=== PATIENT | male | born 1955 | race Caucasian/White ===

== ENCOUNTER → 2022-05-25 | Outpatient (CLI) | payer MEDICARE ==
[2022-05-25 13:18] LABS: INR 1.01 (0.85-1.15)
[2022-05-25 13:19] LABS: ALBUMIN 3.7 g/dL (3.5-5.0); BILIRUBIN,DIRECT 0.2 mg/dL (0.0-0.3); CREATININE 1.2 mg/dL (0.5-1.5); TOTAL PROTEIN, SERUM 7.5 g/dL (6.0-8.3)
== END | disposition home or self-care (01) ==
LOC: LAB 12:42
PROVIDERS: ATTEND Internal Medicine Gastroenterology
DX: K76.89 Other specified diseases of liver (principal); I48.91 Unspecified atrial fibrillation; R93.3 Abnormal findings on diagnostic imaging of other parts of digestive tract
CPT/HCPCS: 36415; 80076; 82105; 82565; 84520; 85610; 85730

== ENCOUNTER → 2022-05-30 | Outpatient (CLI) | payer MEDICARE ==
[~2022-05-30] MED LIST: GADOTERATE MEGLUMINE 10 MMOL/20 ML VIAL IV ONE
== END | disposition home or self-care (01) ==
LOC: RAH 14:44
PROVIDERS: ATTEND Internal Medicine Gastroenterology
DX: R93.3 Abnormal findings on diagnostic imaging of other parts of digestive tract (principal); K76.89 Other specified diseases of liver
CPT/HCPCS: 74183; A9575

== ENCOUNTER → 2023-02-08 | Outpatient (CLI) | payer MEDICARE ==
[2023-02-08 10:10] LABS: BASOPHILS # (AUTO) 0.05 K/uL (0.00-0.20); BASOPHILS % (AUTO) 0.9 % (0.0-5.0); EOSINOPHILS # (AUTO) 0.07 K/uL (0.00-0.70); EOSINOPHILS % (AUTO) 1.3 % (0.0-8.0); HEMATOCRIT 43.9 % (42-54); IMMATURE GRANULOCYTE ABSOLUTE 0.02 K/uL (0-1); LYMPHOCYTES # (AUTO) 0.8 K/uL (1.0-4.8); LYMPHOCYTES % (AUTO) 15.2 % (21.0-51.0); MEAN CORPUSCULAR HEMOGLOBIN 31.9 pg (27.0-33.0); MEAN CORPUSCULAR HGB CONC 33.9 g/dL (32.0-36.0); MONOCYTES # (AUTO) 0.9 K/uL (0.1-1.0); NEUTROPHILS # (AUTO) 3.5 K/uL (1.8-7.7); NEUTROPHILS % (AUTO) 65.2 % (40.0-77.0); PLATELET COUNT (AUTO) 223 K/uL (130-400); RED BLOOD CELL COUNT(AUTO) 4.67 MIL/uL (4.50-6.20); RED CELL DISTRIBUTION WIDTH 12.7 % (11.0-15.5); WHITE BLOOD COUNT (AUTO) 5.3 K/uL (4.8-10.8)
[2023-02-08 10:24] LABS: ALBUMIN 3.5 g/dL (3.5-5.0); BILIRUBIN,TOTAL 0.8 mg/dL (0.2-1.0); CREATININE 1.1 mg/dL (0.5-1.5); POTASSIUM 4.1 mmol/L (3.5-5.1); TOTAL PROTEIN, SERUM 7.2 g/dL (6.0-8.3)
== END | disposition home or self-care (01) ==
LOC: LAB 09:33
PROVIDERS: ATTEND Internal Medicine Gastroenterology
DX: R93.3 Abnormal findings on diagnostic imaging of other parts of digestive tract (principal)
CPT/HCPCS: 36415; 80053; 85025; 86682; 86753

== ENCOUNTER → 2023-02-12 | Outpatient (CLI) | payer MEDICARE ==
[~2023-02-12] MED LIST changes: -GADOTERATE MEGLUMINE 10 MMOL/20 ML VIAL IV ONE; +IOHEXOL-350 75 ML VIAL IV ONE
== END | disposition home or self-care (01) ==
LOC: RAH 07:30
PROVIDERS: ATTEND Internal Medicine Gastroenterology
DX: K76.89 Other specified diseases of liver (principal); R93.3 Abnormal findings on diagnostic imaging of other parts of digestive tract; M47.815 Spondylosis without myelopathy or radiculopathy, thoracolumbar region; J98.11 Atelectasis; K44.9 Diaphragmatic hernia without obstruction or gangrene; I70.0 Atherosclerosis of aorta
CPT/HCPCS: 74170; Q9967

== ENCOUNTER → 2024-01-31 | Outpatient (CLI) | payer MEDICARE ==
[2024-01-31 13:25] LABS: ALBUMIN 3.6 g/dL (3.5-5.0); BILIRUBIN,TOTAL 0.6 mg/dL (0.2-1.0); CREATININE 1.1 mg/dL (0.5-1.3); POTASSIUM 5.1 mmol/L (3.5-5.1); TOTAL PROTEIN, SERUM 7.3 g/dL (6.0-8.3)
== END | disposition home or self-care (01) ==
LOC: LAB 12:12
PROVIDERS: ATTEND Internal Medicine Gastroenterology
DX: R93.3 Abnormal findings on diagnostic imaging of other parts of digestive tract (principal)
CPT/HCPCS: 36415; 80053

== ENCOUNTER → 2024-02-08 | Outpatient (CLI) | payer MEDICARE | END | disposition home or self-care (01) | LOC: RAH 08:41 | PROVIDERS: ATTEND Internal Medicine | DX: K76.89 Other specified diseases of liver (principal); R93.3 Abnormal findings on diagnostic imaging of other parts of digestive tract | CPT/HCPCS: 74170; Q9967 ==

== ENCOUNTER → 2024-02-26 | Outpatient (CLI) | payer MEDICARE ==
[~2024-02-26] MED LIST changes: +FINA5TAB41 PO; -IOHEXOL-350 75 ML VIAL IV ONE; +OMEP40CA21 PO; +TELM20TA8 PO
[2024-02-26 16:38] LABS: CREATININE 1.2 mg/dL (0.5-1.3); POTASSIUM 4.3 mmol/L (3.5-5.1)
== END | disposition home or self-care (01) ==
LOC: LAB 11:53
PROVIDERS: ATTEND Internal Medicine Cardiovascular Disease
DX: I10 Essential (primary) hypertension (principal)
CPT/HCPCS: 36415; 80048

== ENCOUNTER → 2024-03-11 | Outpatient (CLI) | payer MEDICARE ==
[~2024-03-11] MED LIST changes: +ASPI-1443 PO; +CARV6.2579 PO; +LOSA-417 PO; -TELM20TA8 PO
[2024-03-11 17:26] LABS: CREATININE 1.1 mg/dL (0.5-1.3); POTASSIUM 4.2 mmol/L (3.5-5.1)
== END | disposition home or self-care (01) ==
LOC: LAB 14:10
PROVIDERS: ATTEND Internal Medicine Cardiovascular Disease
DX: I10 Essential (primary) hypertension (principal); E78.5 Hyperlipidemia, unspecified
CPT/HCPCS: 36415; 80048; 80061

== ENCOUNTER → 2025-02-13 | Outpatient (CLI) | payer MEDICARE ==
[2025-02-13 12:18] LABS: IMMATURE GRANULOCYTE ABSOLUTE 0.03 K/uL (0-1); NUCLEATED RED BLOOD CELLS 0.0 % (0.0-0.19); PLATELET COUNT (AUTO) 268 K/uL (130-400); RED BLOOD CELL COUNT(AUTO) 4.84 MIL/uL (4.50-6.20); RED CELL DISTRIBUTION WIDTH 12.5 % (11.0-15.5); WHITE BLOOD COUNT (AUTO) 7.1 K/uL (4.8-10.8)
[2025-02-13 12:29] LABS: INR 1.11 (0.85-1.15)
[2025-02-13 12:37] LABS: ASPARTATE AMINOTRANSFERASE 14.0 U/L (10-37); CREATININE 1.2 mg/dL (0.5-1.3); GLOMERULAR FILTR. RATE CALC 65.0 mL/min (>90); GLUCOSE,RANDOM 111.0 mg/dL (70-105); SODIUM SERUM 135.0 mmol/L (136-145); TOTAL PROTEIN, SERUM 7.0 g/dL (6.0-8.3); UREA NITROGEN, BLOOD 13.0 mg/dL (7-18)
== END | disposition home or self-care (01) ==
LOC: LAB 11:44
PROVIDERS: ATTEND Internal Medicine
DX: K29.70 Gastritis, unspecified, without bleeding (principal); R93.3 Abnormal findings on diagnostic imaging of other parts of digestive tract
CPT/HCPCS: 36415; 80053; 85025; 85610

== ENCOUNTER → 2025-02-18 | Outpatient (CLI) | payer MEDICARE ==
[~2025-02-18] MED LIST changes: +IOHEXOL-350 75 ML VIAL IV ONE
--- NOTE | 2025-02-18 22:30 | HMCIMG ---
EXAM: CT ABDOMEN AND PELVIS WITH IV CONTRAST CLINICAL HISTORY: Abnormal findings on diagnostic imaging of other parts of digestive tract. TECHNIQUE: Axial computed tomography images of the abdomen and pelvis obtained following intravenous administration of contrast. Multiplanar reformations reviewed. CONTRAST: 75 cc of nonionic intravenous contrast administered. RADIATION DOSE: Total CTDIvol (Body): 25.00 mGy Total DLP (Body): 1319.70 mGy???cm COMPARISON: None provided. FINDINGS: LUNG BASES: Clear. No pleural effusion or basal consolidation. LIVER: Multiple diffusely scattered, lobulated, non-enhancing hypodense cystic lesions in both lobes of the liver, largest measuring 3.5 cm in segment VIII, consistent with hepatic cysts. No enhancing mass or intrahepatic biliary dilatation. GALLBLADDER AND BILE DUCTS: Gallbladder is normally distended without calculi or mural thickening. No biliary ductal dilatation. PANCREAS: Normal in size and contour. No peripancreatic inflammation or ductal dilatation. SPLEEN: Normal in size and attenuation. ADRENAL GLANDS: Normal bilaterally. KIDNEYS, URETERS, AND BLADDER: Kidneys are normal in size and cortical thickness. No hydronephrosis, hydroureter, or calculi. Urinary bladder appears normal. STOMACH AND BOWEL: Small sliding hiatus hernia measuring 2.2 cm. Diffuse chronic diverticulosis of the colon with circumferential enhancing wall thickening of the sigmoid colon (maximum thickness 1.7 cm, length 8 cm) and pericolonic fat stranding, suggestive of acute diverticulitis. No bowel obstruction or perforation. APPENDIX: Normal. No periappendiceal inflammatory changes. PERITONEUM: No free fluid or free air. LYMPH NODES: No pathologic lymphadenopathy. REPRODUCTIVE: Prostate enlarged, measuring 39 cc, consistent with benign prostatic hypertrophy (BPH). VASCULATURE: Abdominal aorta and major branches are patent. No aneurysm or dissection. BONES: No acute or destructive osseous lesion. IMPRESSION: 1. Acute sigmoid diverticulitis with circumferential wall thickening (maximum thickness 1.7 cm, length 8 cm) and pericolonic fat stranding. 2. Multiple hepatic cysts, largest measuring 3.5 cm in segment VIII, consistent with simple hepatic cysts. 3. Diffuse chronic colonic diverticulosis. 4. Small sliding hiatus hernia measuring 2.2 cm. 5. Benign prostatic hypertrophy, prostate volume 39 cc. 6. No evidence of bowel obstruction, perforation, or free fluid/air in the peritoneum. /[place]
== END | disposition home or self-care (01) ==
LOC: RAH 07:37
PROVIDERS: ATTEND Internal Medicine
DX: K57.32 Diverticulitis of large intestine without perforation or abscess without bleeding (principal); K57.30 Diverticulosis of large intestine without perforation or abscess without bleeding; K76.89 Other specified diseases of liver; N40.0 Benign prostatic hyperplasia without lower urinary tract symptoms; K44.9 Diaphragmatic hernia without obstruction or gangrene; R93.3 Abnormal findings on diagnostic imaging of other parts of digestive tract
CPT/HCPCS: 74177; Q9967

== ENCOUNTER → 2025-04-22 | Outpatient (CLI) | payer MEDICARE ==
[~2025-04-22] MED LIST changes: +IOHEXOL 350 MG/ML 100ML INFUS..BTL IV ONE; -IOHEXOL-350 75 ML VIAL IV ONE
--- NOTE | 2025-04-22 23:51 | HMCIMG ---
EXAMINATION: CT ANGIOGRAPHY OF THE ABDOMEN WITH AND WITHOUT INTRAVENOUS CONTRAST Clinical Indication: Essential/primary hypertension. Evaluation for renovascular etiology. Comparison: CT abdomen and pelvis dated February 18, 2025. Technique: Multiphase CT angiography of the abdomen was performed before and after intravenous contrast administration, with multiplanar reformations and maximum intensity projections. Radiation Dose: CTDIvol 85.3 mGy. DLP 1111.10 mGycm. Findings: Lower Chest: Bibasilar dependent and streaky atelectasis is present. Mild centrilobular emphysema is noted. Mitral and aortic valve annulus calcifications are present, with minimal coronary arterial calcifications. Liver: The liver measures approximately 17.7 cm in craniocaudal dimension. Multiple well-defined hypodense lesions are present in both hepatic lobes. The largest lesion, located in segment , measures approximately 5.6 7.5 7.0 cm and demonstrates low attenuation with an average value of approximately 26 Hounsfield units. A few lesions demonstrate peripheral rim calcifications. No post-contrast enhancement is identified. No intrahepatic or extrahepatic biliary ductal dilatation is present. Gallbladder and Biliary Tree: The gallbladder is unremarkable. No biliary dilatation. Spleen: The spleen is unremarkable, measuring approximately 11.7 cm. Pancreas: Unremarkable in size and attenuation, without focal lesion or ductal dilatation. Adrenal Glands: Both adrenal glands are unremarkable. Kidneys: The kidneys are normal in size and enhancement. A nonenhancing hypodense lesion measuring approximately 1.0 cm is present in the posterior interpolar region of the right kidney, compatible with a Bosniak class I simple cyst. No hydronephrosis is present. Abdominal Vasculature: The abdominal aorta demonstrates atheromatous calcification without aneurysm or dissection. The origins and visualized courses of the celiac trunk, superior mesenteric artery, bilateral renal arteries, and inferior mesenteric artery are patent without evidence of stenosis or occlusion. No accessory renal arteries are identified. Retroperitoneum: No retroperitoneal mass or lymphadenopathy is identified. Gastrointestinal Tract: A small sliding-type hiatal hernia is present, with the diaphragmatic defect measuring approximately 2.3 cm. The visualized bowel loops are otherwise unremarkable. Osseous Structures: No acute or destructive osseous abnormality is identified. Impression: * No evidence of renal artery stenosis or other renovascular abnormality to account for the patients essential hypertension. No adrenal or retroperitoneal mass. * Multiple hepatic cysts, including interval increase in size of the largest cyst in segment , without enhancement or suspicious features. * Stable small sliding hiatal hernia. * Compared with the prior CT abdomen and pelvis dated February 18, 2025, there is interval enlargement of the largest hepatic cyst, with otherwise stable findings. /[place]
== END | disposition home or self-care (01) ==
LOC: RAH 09:08
PROVIDERS: ATTEND Internal Medicine Cardiovascular Disease
DX: K44.9 Diaphragmatic hernia without obstruction or gangrene (principal); I1A.0 Resistant hypertension; K76.89 Other specified diseases of liver; I08.0 Rheumatic disorders of both mitral and aortic valves; J98.11 Atelectasis; J43.2 Centrilobular emphysema; N28.1 Cyst of kidney, acquired
CPT/HCPCS: 74175; Q9967